=== PATIENT | male | born 1955 | race Caucasian/White ===

== ENCOUNTER 2021-03-27 10:38 | Emergency (ER) | payer OTHER ==
[~2021-03-27] VITALS: Ht 172.7 cm; Wt 72.6 kg
--- NOTE | 2021-03-27 10:42 | NUR ---
Patient ambulated with steady gait to bed 5.
--- NOTE | 2021-03-27 10:43 | NUR ---
65 Y/O MALE BIB C/O SUDDEN ONSET NON RADIATING CHEST PAIN THAT STARTED 30 MIN PRIOR TO ARRIVAL. PT STATES PAIN STARTED AT REST. C/O 10/10 PRESSURE TO CHEST. DENIES COUGH/SOB. SKIN WARM, DRY, AND INTACT. AWAKE AND ALERT. PLACED ON BEDSIDE MONITOR. MEDHX: HTN, HLD
[2021-03-27 10:46] VITALS: BP 126/84
[2021-03-27] MEDS ORDERED: NITROGLYCERIN 0.4 MG TAB SL ONE (10:50)
[2021-03-27] MEDS ORDERED: ASPIRIN 325 MG TAB PO ONE (10:50)
--- NOTE | 2021-03-27 10:50 | NUR ---
65 YEAR OLD MALE COMPLAINS OF NONRADIATING PRESSURE CHEST PAIN X 30MINS. PT DENIES SOB. PT AOX4, BREATHING EVEN AND UNLABORED, SKIN WARM AND DRY. BED IN LOWEST POSITION, LOCKED, BED RAIL UPX1. PT PLACED ON MONITOR. ERMD AT BEDSIDE. PT PLACED ON 2L NC. PMH - HTN, HLD ALLERGIES - NKA
--- NOTE | 2021-03-27 10:55 | NUR ---
1ST NITRO GIVEN - BP 126/84, HR 60
--- NOTE | 2021-03-27 11:00 | NUR ---
PT REPORTS HAVING CHEST PAIN STILL 2ND DOSE NITRO GIVEN - BP 129/85, HR 63
[2021-03-27 11:04] LABS: BASOPHILS # (AUTO) 0.1 K/uL (0.00-0.22); BASOPHILS % (AUTO) 0.7 % (0.0-2.0); EOSINOPHILS # (AUTO) 0.1 K/uL (0-0.4); EOSINOPHILS % (AUTO) 1.1 % (0.0-4.0); HEMATOCRIT 43.6 % (36-52); HEMOGLOBIN 14.8 g/dL (12.0-18.0); LYMPHOCYTES # (AUTO) 2.5 K/uL (2.0-11.5); LYMPHOCYTES % (AUTO) 20.7 % (20.5-51.1); MEAN CORPUSCULAR HEMOGLOBIN 31 pg (27-31); MEAN CORPUSCULAR HGB CONC 34 g/dL (33-37); MEAN CORPUSCULAR VOLUME 91.5 fL (80-94); MONOCYTES # (AUTO) 0.6 K/uL (0.8-1.0); NEUTROPHILS # (AUTO) 8.9 K/uL (1.8-7.7); NEUTROPHILS % (AUTO) 72.5 % (42.2-75.2); PLATELET COUNT (AUTO) 128 K/uL (140-450); RED BLOOD CELL COUNT(AUTO) 4.77 MIL/uL (4.20-6.10); RED CELL DISTRIBUTION WIDTH 13.9 % (11.6-13.7); WHITE BLOOD COUNT (AUTO) 12.3 K/uL (4.8-10.8)
--- NOTE | 2021-03-27 11:05 | NUR ---
PT REPORTS STILL HAVING CHEST PAIN 3RD NITRO GIVEN - BP 118/77, HR 63
--- NOTE | 2021-03-27 11:06 | NUR ---
Patient to be transferred to [facility]. Is being transferred due to higher level of care. Receiving facility has accepting physician and available space. ER physician has signed transfer form. Patient or responsible republican has agreed to transfer and signed form. Patient belongings inventoried and will be sent with patient. Copy of nursing notes, lab reports, EKG, Physicians Orders and X-rays to be sent with patient. Report called to Partha TUTTLE at receiving facility. [facility] ambulance service has been called for transfer. [facility] at bedside
--- NOTE | 2021-03-27 11:07 | NUR ---
[facility] AT BEDSIDE
[2021-03-27 11:18] VITALS: BP 118/77
[2021-03-27 11:18] LABS: PROTHROMBIN TIME 10.4 secs (10.8-13.4)
--- NOTE | 2021-03-27 11:18 | NUR ---
PT TAKEN BY [facility] AT THIS TIME
[2021-03-27 11:22] LABS: ANION GAP 13.5 (8-16); CARBON DIOXIDE 29.4 mmol/L (21-32); POTASSIUM 3.9 mmol/L (3.5-5.1)
== END 2021-03-27 11:18 | disposition critical access hospital (66) ==
LOC: MED 10:38
DX: I21.3 ST elevation (STEMI) myocardial infarction of unspecified site (principal); R07.9 Chest pain, unspecified; F17.200 Nicotine dependence, unspecified, uncomplicated
CPT/HCPCS: 36415; 71045; 80048; 84484; 85025; 85610; 85730; 93005; 99284; 99291